=== PATIENT | male | born 1960 | race Caucasian/White ===

== ENCOUNTER 2017-07-31 11:48 | Day surgery (SDC) | payer OTHER ==
[2017-07-31] MEDS ORDERED: CEFAZOLIN 2 GM/50 ML (PMX) 50 ML IVPB (12:00)
[2017-07-31] MEDS ORDERED: SOD CHLORIDE 0.9% 1,000 ML IV (12:00)
[2017-07-31] MEDS ORDERED: METOCLOPRAMIDE 10 MG INJ (13:56)
[2017-07-31] MEDS ORDERED: CEFAZOLIN 1 GM INJ (13:56)
[2017-07-31] MEDS ORDERED: ONDANSETRON 4 MG INJ (13:56)
[2017-07-31] MEDS ORDERED: PROPOFOL 20 ML ×2 (13:56→14:32)
[2017-07-31] MEDS ORDERED: FENTAnyl 50 MCG/ML VIAL (13:56)
[2017-07-31] MEDS ORDERED: MIDAZOLAM 1 MG/ML 2 ML INJ (13:56)
[2017-07-31] MEDS ORDERED: KETOROLAC 30 MG INJ (13:57)
[2017-07-31] MEDS ORDERED: HYDROmorphONE (0.2 MG/ML) 10ML SYG IV ×3 (14:00)
[2017-07-31] MEDS ORDERED: OXYCODONE/ACETAMINOPHEN (5/325) TAB PO ×2 (14:00)
[2017-07-31] MEDS ORDERED: ONDANSETRON 4 MG INJ IV (14:00)
[2017-07-31] MEDS ORDERED: EPHEDrine SULFATE 50 MG/5 ML SYG (14:17)
[2017-07-31] MEDS ORDERED: BUPIVACAINE 0.25% (MPF) 30 ML INJ (14:22)
[2017-07-31] MEDS: BUPIVACAINE 0.25% (MPF) 30 ML INJ INJ (14:46)
[2017-07-31] MEDS: HYDROCODONE/APAP (5/325) TAB PO (15:10)
== END 2017-07-31 16:00 | disposition home or self-care (01) ==
LOC: SDS 11:48
DX: L72.0 Epidermal cyst (principal)
CPT/HCPCS: 14000; 88307

== ENCOUNTER 2017-08-28 10:25 | Day surgery (SDC) | payer OTHER ==
[2017-08-28] MEDS ORDERED: SOD CHLORIDE 0.9% 1,000 ML IV (11:30)
[2017-08-28 11:32] LABS: ADD MAN DIFF? NO
[2017-08-28 11:34] LABS: WHITE BLOOD COUNT 8.6 10^3/ul (4.8-10.8)
[2017-08-28 11:34] LABS: BASOPHILS % 0.2 % (0.0-2.0); EOSINOPHILS # 0.3 10^3/ul (0.0-0.5); EOSINOPHILS % 3.1 % (0.0-7.0); HEMATOCRIT 40.7 % (42.0-52.0); HEMOGLOBIN 14.4 g/dl (14.0-18.0); LYMPHOCYTES # 3.6 10^3/ul (0.8-2.9); LYMPHOCYTES % 41.8 % (15.0-51.0); MEAN CORPUSCULAR HEMOGLOBIN 31.5 pg (29.0-33.0); MEAN CORPUSCULAR HGB CONC 35.4 g/dl (32.0-37.0); MEAN CORPUSCULAR VOLUME 89.1 fl (82.0-101.0); MEAN PLATELET VOLUME 10.9 fl (7.4-10.4); MONOCYTE # 0.5 10^3/ul (0.3-0.9); MONOCYTES % 6.1 % (0.0-11.0); NEUTROPHIL # 4.2 10^3/ul (1.6-7.5); NEUTROPHILS % 48.3 % (39.0-77.0); PLATELET COUNT 200 10^3/UL (140-415); RED BLOOD COUNT 4.57 10^6/ul (4.70-6.10); RED CELL DISTRIBUTION WIDTH 12.5 % (11.5-14.5)
[2017-08-28 11:54] LABS: ALANINE AMINOTRANSFERASE 44 IU/L (13-69); ALBUMIN 4.3 g/dl (3.3-4.9); ALBUMIN/GLOBULIN RATIO 1.43; ALKALINE PHOSPHATASE 64 IU/L (42-121); ANION GAP 16 (8-16); ASPARTATE AMINO TRANSFERASE 26 IU/L (15-46); BILIRUBIN,INDIRECT 0.3 mg/dl (0-1.1); BILIRUBIN,TOTAL 0.3 mg/dl (0.2-1.3); CARBON DIOXIDE 25 mmol/L (21-31); CHLORIDE 108 mmol/L (97-110); GLUCOSE 94 mg/dl (70-220); TOTAL PROTEIN 7.3 g/dl (6.1-8.1)
[2017-08-28 11:58] LABS: BLOOD UREA NITROGEN 17 mg/dl (7-20); CALCIUM 9.4 mg/dl (8.4-10.2); POTASSIUM 4.2 mmol/L (3.5-5.1)
[2017-08-28 12:00] LABS: SODIUM 145 mmol/L (135-144)
[2017-08-28 12:15] LABS: INR 0.98; PROTIME 13.1 Sec (11.9-14.9)
[2017-08-28 12:30] LABS: PARTIAL THROMBOPLASTIN TIME 30.8 Sec (25.0-35.0)
[2017-08-28] MEDS ORDERED: MIDAZOLAM 1 MG/ML 2 ML INJ (13:01)
[2017-08-28] MEDS: BUPIVACAINE 0.25% (MPF) 30 ML INJ (13:22)
[2017-08-28] MEDS ORDERED: CEFAZOLIN 1 GM INJ (13:33)
[2017-08-28] MEDS ORDERED: ONDANSETRON 4 MG INJ (13:33)
[2017-08-28] MEDS ORDERED: LIDOCAINE 2% (SDV) 5 ML INJ (13:33)
[2017-08-28] MEDS ORDERED: PROPOFOL 20 ML (13:33)
[2017-08-28] MEDS ORDERED: FENTAnyl 50 MCG/ML VIAL IV (14:00)
[2017-08-28] MEDS ORDERED: HYDROCODONE/APAP (5/325) TAB PO (14:00)
[2017-08-28] MEDS ORDERED: DIPHENHYDRAMINE 50 MG INJ IV (14:00)
[2017-08-28] MEDS ORDERED: MEPERIDINE 25 MG INJ IV (14:00)
[2017-08-28] MEDS ORDERED: HYDROmorphONE (0.2 MG/ML) 10ML SYG IV ×2 (14:00)
[2017-08-28] MEDS ORDERED: ONDANSETRON 4 MG INJ IV (14:00)
== END 2017-08-28 14:44 | disposition home or self-care (01) ==
LOC: SDS 10:25
DX: L98.499 Non-pressure chronic ulcer of skin of other sites with unspecified severity (principal); L90.5 Scar conditions and fibrosis of skin; M79.89 Other specified soft tissue disorders; E66.01 Morbid (severe) obesity due to excess calories; Z68.30 Body mass index [BMI] 30.0-30.9, adult
CPT/HCPCS: 14001; 80053; 85025; 85610; 85730; 88307